=== PATIENT | female | born 1950 | race Caucasian/White ===

== ENCOUNTER → 2016-07-08 | Outpatient (CLI) | payer MEDICARE, OTHER ==
[~2016-07-08] MED LIST: ASPI81TA82 PO; CALTTAB5 PO; CORE25TA PO; DHEA50CA3 PO; DOXY100T PO; HCTZ25 PO; LASI20TA PO; LEVO.125 PO; LEVO137T2 PO; MAGN400C2 PO; PHILCAP2 PO; POTA-243 PO; RAMI2.5C29 PO; SULF1TAB47 PO; TYLE500T PO; VITA100T15 PO; VITA400C28 PO; VITA400C70 PO
[2016-07-08 07:42] LABS: POTASSIUM 3.5 MEQ/L (3.5-5.1)
== END ==
LOC: CLAB 06:53
PROVIDERS: ATTEND Internal Medicine Interventional Cardiology
DX: I11.9 Hypertensive heart disease without heart failure (principal)
CPT/HCPCS: 36415; 80048

== ENCOUNTER → 2016-08-26 | Outpatient (CLI) | payer MEDICARE, OTHER ==
[2016-08-26 08:12] LABS: FREE T4 1.1 NG/DL (0.76-1.46)
== END ==
LOC: CLAB 07:18
PROVIDERS: ATTEND Internal Medicine Endocrinology, Diabetes & Metabolism
DX: E03.9 Hypothyroidism, unspecified (principal)
CPT/HCPCS: 36415; 84439; 84443

== ENCOUNTER → 2016-10-14 | Outpatient (CLI) | payer MEDICARE, OTHER ==
[2016-10-14 07:36] LABS: MEAN CELL VOLUME 90.4 FL (80.0-100.0); MEAN CORPUSCULAR HEMOGLOBIN 31.7 PG (27.0-34.0); MEAN CORPUSCULAR HGB CONC 35.1 % (32.0-36.0); PLATELET COUNT 197 TH/MM3 (150-450); RED BLOOD COUNT 4.42 MIL/MM3 (4.00-5.30); RED CELL DISTRIBUTION WIDTH 12.2 % (11.6-17.2); REVIEW FLAG FINAL; WHITE BLOOD COUNT 5.6 TH/MM3 (4.0-11.0)
[2016-10-14 07:55] LABS: ALT (GPT) 37 U/L (10-53); ANION GAP 11 MEQ/L (5-15); AST (GOT) 16 U/L (15-37); BICARBONATE 26.4 MEQ/L (21.0-32.0); BLOOD UREA NITROGEN 24 MG/DL (7-18); CHLORIDE 102 MEQ/L (98-107); GLOMERULAR FILTRATION RATE 72 ML/MIN (>89); GLUCOSE,FASTING 117 MG/DL (74-99); POTASSIUM 3.9 MEQ/L (3.5-5.1); SODIUM (NA) 139 MEQ/L (136-145)
[2016-10-14 08:22] LABS: ALKALINE PHOSPHATASE 57 U/L (45-117); HDL CHOLESTEROL 47.3 MG/DL (40.0-60.0); LDL CHOLESTEROL 103 MG/DL (0-99); TOTAL BILIRUBIN ADULT 0.5 MG/DL (0.2-1.0)
[2016-10-14 16:59] LABS: HEMOGLOBIN A1a 1.1 %; HEMOGLOBIN A1b 0.9 %; HEMOGLOBIN Ao 85.3 %; HEMOGLOBIN F 1.1 %; HEMOGLOBIN LA1C 1.8 %; HEMOGLOBIN P3 3.4 %
== END ==
LOC: CLAB 07:09
PROVIDERS: ATTEND Internal Medicine
DX: E78.5 Hyperlipidemia, unspecified (principal); E11.9 Type 2 diabetes mellitus without complications; I10 Essential (primary) hypertension; E03.9 Hypothyroidism, unspecified; E55.9 Vitamin D deficiency, unspecified; E53.8 Deficiency of other specified B group vitamins
CPT/HCPCS: 36415; 80053; 80061; 82306; 82607; 83036; 84436; 84443; 85027

== ENCOUNTER → 2017-04-21 | Outpatient (CLI) | payer MEDICARE, OTHER ==
[2017-04-21 07:57] LABS: AUTOMATED NEUTROPHIL # 2.4 TH/MM3 (1.8-7.7); BASOPHIL % 0.8 % (0.0-2.0); EOSINOPHIL # 0.1 TH/MM3 (0-0.4); EOSINOPHIL % 2.2 % (0.0-4.0); HEMATOCRIT 40.2 % (35.0-46.0); HEMO FLAGS DIFF FINAL; LYMPH % 36.4 % (9.0-44.0); LYMPHOCYTE # 1.8 TH/MM3 (1.0-4.8); MEAN CELL VOLUME 92.2 FL (80.0-100.0); MEAN CORPUSCULAR HEMOGLOBIN 32.3 PG (27.0-34.0); MONO % 11.7 % (0.0-8.0); NEUT % 48.9 % (16.0-70.0); PLATELET COUNT 202 TH/MM3 (150-450); RED BLOOD COUNT 4.36 MIL/MM3 (4.00-5.30); RED CELL DISTRIBUTION WIDTH 12.8 % (11.6-17.2)
[2017-04-21 08:19] LABS: ALT (GPT) 34 U/L (10-53)
[2017-04-21 08:27] LABS: ANION GAP 8 MEQ/L (5-15); AST (GOT) 19 U/L (15-37); BICARBONATE 26.8 MEQ/L (21.0-32.0); BLOOD UREA NITROGEN 23 MG/DL (7-18); CHLORIDE 104 MEQ/L (98-107); GLOMERULAR FILTRATION RATE 69 ML/MIN (>89); GLUCOSE,FASTING 118 MG/DL (74-99); POTASSIUM 3.8 MEQ/L (3.5-5.1); SODIUM (NA) 139 MEQ/L (136-145)
[2017-04-21 08:28] LABS: ALKALINE PHOSPHATASE 63 U/L (45-117); FREE T4 1.08 NG/DL (0.76-1.46); TOTAL BILIRUBIN ADULT 0.4 MG/DL (0.2-1.0)
[2017-04-21 13:48] LABS: HEMOGLOBIN A1a 1.2 %; HEMOGLOBIN A1b 0.9 %; HEMOGLOBIN Ao 85.2 %; HEMOGLOBIN F 1.2 %; HEMOGLOBIN P3 3.6 %
== END ==
LOC: CLAB 07:27
PROVIDERS: ATTEND Internal Medicine
DX: I42.0 Dilated cardiomyopathy (principal); I50.22 Chronic systolic (congestive) heart failure; E11.9 Type 2 diabetes mellitus without complications; I10 Essential (primary) hypertension; E03.9 Hypothyroidism, unspecified
CPT/HCPCS: 36415; 80053; 83036; 84439; 84443; 85025

== ENCOUNTER 2017-06-29 03:28 | Emergency (ER) | payer MEDICARE, OTHER ==
[~2017-06-29] VITALS: Ht 165.1 cm; Wt 80.0 kg
[2017-06-29 03:32] VITALS: BP 192/84; PULSE 86; RESP 16; TEMP 97.9; O2SAT 99
[2017-06-29] MEDS ORDERED: LEVO.125 PO (04:04)
[2017-06-29] MEDS ORDERED: ENAL10TA PO (04:04)
[2017-06-29] MEDS ORDERED: HYDR25TA5 PO (04:04)
[2017-06-29] MEDS ORDERED: CALC1TAB87 PO (04:04)
[2017-06-29] MEDS ORDERED: SACC1CAP3 PO (04:04)
[2017-06-29] MEDS ORDERED: VITACAP7 PO (04:04)
[2017-06-29] MEDS ORDERED: DHA100CA (04:04)
[2017-06-29] MEDS ORDERED: MAGN100T2 PO (04:04)
[2017-06-29] MEDS ORDERED: CARV25TA (04:04)
[2017-06-29] MEDS ORDERED: POTA10PO PO (04:04)
[2017-06-29] MEDS ORDERED: VITA500S3 SL (04:04)
[2017-06-29] MEDS ORDERED: VITA200C3 PO (04:04)
[2017-06-29] MEDS ORDERED: DHEA50CA (04:04)
--- NOTE | 2017-06-29 04:28 | PD ---
HPI Chief Complaint: Skin Problem Time Seen by Provider: 04:03 Travel History International Travel<30 days: No Contact w/Intl Traveler<30days: No Traveled to known affect area: No History of Present Illness HPI The patient is a 66 year old female who presents to the [facility] emergency department with a history of right arm redness that began at 2:30AM. It is aching and warm to the touch. She reports that she has a history of frequent cellulitis of the right upper extremity. She has chronic lymphedema of the right upper extremity related to a mastectomy. She reports that she last had a manicure on Thursday. She reports that she has a standing order for antibiotic at the pharmacy, however she has not filled it recently. She reports that she is normally on amoxicillin/clavulanic acid when she develops a cellulitis. Her primary care physician is Dr. Gonzales. She denies having any recent fevers, cough, congestion, neck pain, chest pain, shortness of breath, abdominal pain, vomiting, diarrhea, urinary symptoms, or neurologic symptoms. She denies any prior history of DVT or PE. [facility] Past Medical History Narrative Medical The patient's past medical history is significant for dietary controlled diabetes mellitus, hypertension, ovarian cyst rupture, breast ca s/p mastectomy and chemotherapy, recurrent cellulitis of the right upper extremity. Blood Disorders: No Cancer: Yes (BILATERAL BREAST CA) Cardiovascular Problems: Yes Chemotherapy: Yes Endocrine: Yes Gastrointestinal Disorders: Yes GERD: Yes Genitourinary: No Headaches: Yes Hypertension: Yes Immune Disorder: No Musculoskeletal: Yes (fibromyalgia) Neurologic: Yes Psychiatric: No Respiratory: No Radiation Therapy: No Thyroid Disease: Yes Tetanus Vaccination: < 5 Years Influenza Vaccination: Yes ?: Not Past Surgical History Narrative Surgical The patient's past surgical history is significant for 2 c-sections, hysterectomy, bilateral mastectomy. Abdominal Surgery: Yes (appendectomy 1968) AICD: No Gynecologic Surgery: Yes (c-sections 1969 and 1970, hysterectomy 1971, bilateral mastectomy 2004) Hysterectomy: Yes Joint Replacement: No Pacemaker: No Other Surgery: Yes (DOUBLE MASTECTOMY, PORT INSERT/REMOVAL) Social History Alcohol Use: No Tobacco Use: No Substance Use: No Allergies-Medications (Allergen,Severity, Reaction): Coded Allergies: beta-carotene (Unverified Allergy, Severe, RASH, 06/29/17) celecoxib (Verified Allergy, Severe, 06/29/17) muscle aches citric acid (Unverified Allergy, Severe, Hives, 06/29/17) erythromycin base (Verified Allergy, Severe, 06/29/17) muscle aches ethyl alcohol (Verified Allergy, Severe, 06/29/17) muscle aches vitamin B complex and C (Unverified Allergy, Severe, Hives, 06/29/17) vitamins A and D (Unverified Allergy, Severe, RASH, 06/29/17) ascorbic acid (Unverified Adverse Reaction, Severe, RASH/BREAK OUT AT SITE OF CONTACT, 06/29/17) CANNOT HAVE FOODS CONTAINING VITAMIN C OR ASCORBIC ACID DUE TO RASH/BREAKOUT AT SITE tomato (Unverified Adverse Reaction, Severe, Hives, 06/29/17) PATIENT CANNOT CONSUME FOODS CONTAINING VITAMIN C OR ASCORBIC ACID DUE TO RASH/BREAK OUT AT SITE Uncoded Allergies: CARBOHYDRATE (Allergy, Severe, DIARRHEA, 04/21/07) Reported Meds & Prescriptions Reported Meds & Active Scripts Active Reported Probiotic (Saccharomyces Boulardii) 250 Mg Cap 250 Mg PO BID Magnesium Citrate 100 Mg Tab 400 Mg PO DAILY PRN Vitamin E 200 Unit Cap 400 Units PO DAILY Dhea (Prasterone (DHEA)) 50 Mg Cap Dha [place] 3 (Docosahexaenoic Acid) 100 Mg Cap Calcium 600 with Vitamin D (Calcium Carbonate-Cholecalciferol) 600-400 mg-Unit Tab 1 Tab PO DAILY Vitamin B-12 (Cyanocobalamin) 500 Mcg Subl 500 Mcg SL DAILY B Complex (B-Complex Vitamins) 1 Cap 1 Cap PO DAILY Synthroid (Levothyroxine Sodium) 125 Mcg Tab 125 Mcg PO DAILY Enalapril (Enalapril Maleate) 10 Mg Tab 10 Mg PO BID Potassium Chloride Powder (Potassium Chloride) 20 Meq Powderpack 20 Meq PO DAILY Hydrochlorothiazide 25 Mg Tab 25 Mg PO DAILY Carvedilol 25 Mg Tab 25 Mg BID Review of Systems Except as stated in HPI: all other systems reviewed are Neg General / Constitutional: No: Fever Eyes: No: Visual changes HENT: No: Headaches Cardiovascular: No: Chest Pain or Discomfort Respiratory: No: Shortness of Breath Gastrointestinal: No: Abdominal Pain Genitourinary: No: Dysuria Musculoskeletal: Positive: Edema, Pain Skin: Positive Rash Neurologic: No: Weakness Psychiatric: No: Depression Endocrine: No: Polydipsia Hematologic/Lymphatic: No: Easy Bruising Physical Exam Narrative General: The patient is a well-developed well-nourished female in no acute distress. Head and Neck exam: Head is normocephalic atraumatic. Eyes: EOMI, pupils are equal round and reactive to light. Nose: Midline septum with pink mucous membranes Mouth: Dentition unremarkable. Moist mucus membranes. Posterior oropharynx is not erythematous. No tonsillar hypertrophy. Uvula midline. Airway patent. Neck: No palpable lymphadenopathy. No nuchal rigidity. No thyromegaly. Cardiovascular: Regular rate and rhythm without murmurs, gallops, or rubs. Lungs: Clear to auscultation bilaterally. No wheezes, rhonchi, or rales. Abdomen: Soft, without tenderness to palpation in all 4 quadrants of the abdomen. No guarding, rebound, or rigidity. Normal bowel sounds are audible. No tenderness on palpation of McBurney's point. Negative Christopher sign. Extremities: No clubbing, cyanosis, or edema, except in the area of interest, the right upper extremity. The patient has patchy erythema of the right upper extremity involving the proximal forearm and upper arm. There is warmth to palpation. No significant pain to palpation. She has full range of motion of her right arm without pain in the joints. She has intact sensation over all fingertips, less than 3 second capillary refill. She has soft compartments. No vesicle formation. No crepitus. No pustules. 2+ pulses in all 4 extremities. No calf tenderness on palpation. Back: No spinous process tenderness to palpation. No costovertebral angle tenderness to palpation. Neurologic Exam: Grossly nonfocal. Skin Exam: No other rash noted. Intact skin that is warm and dry. Data Data Last Documented VS Vital Signs Date Time Temp Pulse Resp B/P (MAP) Pulse Ox O2 Delivery O2 Flow Rate FiO2 06/29/17 05:22 80 16 180/70 (106) 98 Room Air 06/29/17 03:32 97.9 Orders Orders Complete Blood Count With Diff (06/29/17 04:34) Comprehensive Metabolic Panel (06/29/17 04:34) Prothrombin Time / Inr (Pt) (06/29/17 04:34) Act Partial Throm Time (Ptt) (06/29/17 04:34) Blood Culture (06/29/17 04:34) C-Reactive Protein (Crp) (06/29/17 04:34) Magnesium (Mg) (06/29/17 04:34) Iv Access Insert/Monitor (06/29/17 04:34) Ecg Monitoring (06/29/17 04:34) Oximetry (06/29/17 04:34) Lactic Acid Sepsis Protocol (06/29/17 04:34) Cefazolin 2 Gm Premix (Ancef 2 Gm Premix (06/29/17 04:45) Ed Discharge Order (06/29/17 06:21) Labs Laboratory Tests Test 06/29/17 04:50 White Blood Count 12.7 TH/MM3 Red Blood Count 4.66 MIL/MM3 Hemoglobin 15.2 GM/DL Hematocrit 43.1 % Mean Corpuscular Volume 92.4 FL Mean Corpuscular Hemoglobin 32.6 PG Mean Corpuscular Hemoglobin Concent 35.3 % Red Cell Distribution Width 12.4 % Platelet Count 174 TH/MM3 Mean Platelet Volume 8.6 FL Neutrophils (%) (Auto) 81.7 % Lymphocytes (%) (Auto) 11.3 % Monocytes (%) (Auto) 5.5 % Eosinophils (%) (Auto) 1.3 % Basophils (%) (Auto) 0.2 % Neutrophils # (Auto) 10.4 TH/MM3 Lymphocytes # (Auto) 1.4 TH/MM3 Monocytes # (Auto) 0.7 TH/MM3 Eosinophils # (Auto) 0.2 TH/MM3 Basophils # (Auto) 0.0 TH/MM3 CBC Comment DIFF FINAL Differential Comment Prothrombin Time 9.9 SEC Prothromb Time International Ratio 1.0 RATIO Activated Partial Thromboplast Time 25.2 SEC Blood Urea Nitrogen 17 MG/DL Creatinine 0.77 MG/DL Random Glucose 112 MG/DL Total Protein 7.8 GM/DL Albumin 4.0 GM/DL Calcium Level 9.6 MG/DL Magnesium Level 2.1 MG/DL Alkaline Phosphatase 72 U/L Aspartate Amino Transf (AST/SGOT) 50 U/L Alanine Aminotransferase (ALT/SGPT) 32 U/L Total Bilirubin 0.6 MG/DL Sodium Level 136 MEQ/L Potassium Level 4.4 MEQ/L Chloride Level 101 MEQ/L Carbon Dioxide Level 27.3 MEQ/L Anion Gap 8 MEQ/L Estimat Glomerular Filtration Rate 75 ML/MIN Lactic Acid Level 2.0 mmol/L C-Reactive Protein LESS THAN 0.29 MG/DL MDM Medical Decision Making Medical Screen Exam Complete: Yes Emergency Medical Condition: Yes Medical Record Reviewed: Yes Differential Diagnosis Cellulitis, versus shingles, versus lymphedema Narrative Course During the course of the patient's emergency department visit, the patient's history, examination, and differential diagnosis were reviewed with the patient. The patient was placed on a monitor worker with oximetry and frequent blood pressure monitoring. The patient had IV access obtained and blood work sent for analysis. The patient was initially provided Ancef 2 g IV. The patient's laboratory studies were reviewed and remarkable for a white count of 12.7, hemoglobin 15.2, platelets 174 with neutrophils 81.7, lactic acid is 2 , PT 9.9, PTT 25.2. CMP is remarkable for glucose of 112, AST 50, C-reactive protein less than 0.29. The patient's results were discussed with her. The patient reports feeling well and would like to be discharged home to start on antibiotic as an outpatient. The patient reports that she has a prescription for amoxicillin with clavulanate that is already been prescribed by her primary care physician for when she develops these infections. She was instructed regarding the importance of calling her physician this morning to schedule an appointment in the next 24 hours for follow-up and reexamination. In the meantime she is instructed that if she develops any worsening signs or symptoms including fever , vomiting, chills, spread of redness, she should follow back up immediately in the emergency department. The patient is resting comfortably and feels better, is alert and in no distress. The patient's results and examination findings were discussed with the patient. The repeat examination is unremarkable and benign. The history, exam, diagnostic testing, and current condition do not suggest any significant pathology to warrant further testing, continued ED treatment, admission, or surgical evaluation at this point. The vital signs have been stable. The patient does not have uncontrollable pain, intractable vomiting, or other significant symptoms. The patient's condition is stable and appropriate for discharge. The patient will pursue further outpatient evaluation with a primary care physician or other designated or consulting physician as indicated in the discharge instructions. The patient expressed understanding and was agreeable with this plan. Diagnosis Primary Impression: Cellulitis of left upper extremity Referrals: Primary Care Physician 2 days Additional Instructions: Filled the previously prescribed antibiotic prescription today. Follow-up with her primary care physician for reexamination in 24 hours. Disposition: 01 DISCHARGE HOME Condition: Stable Leisa Johnson MD Jun 29, 2017 04:28
[2017-06-29] MEDS ORDERED: ceFAZolin 2 GM PREMIX 50 ML IV ONE (04:45)
[2017-06-29 04:55] VITALS: O2SAT 97
[2017-06-29 05:03] LABS: AUTOMATED NEUTROPHIL # 10.4 TH/MM3 (1.8-7.7); BASOPHIL % 0.2 % (0.0-2.0); EOSINOPHIL # 0.2 TH/MM3 (0-0.4); EOSINOPHIL % 1.3 % (0.0-4.0); HEMATOCRIT 43.1 % (35.0-46.0); HEMOGLOBIN 15.2 GM/DL (11.6-15.3); LYMPH % 11.3 % (9.0-44.0); LYMPHOCYTE # 1.4 TH/MM3 (1.0-4.8); MEAN CELL VOLUME 92.4 FL (80.0-100.0); MEAN CORPUSCULAR HEMOGLOBIN 32.6 PG (27.0-34.0); MEAN CORPUSCULAR HGB CONC 35.3 % (32.0-36.0); MEAN PLATELET VOLUME 8.6 FL (7.0-11.0); MONO % 5.5 % (0.0-8.0); MONOCYTE # 0.7 TH/MM3 (0-0.9); NEUT % 81.7 % (16.0-70.0); PLATELET COUNT 174 TH/MM3 (150-450); RED BLOOD COUNT 4.66 MIL/MM3 (4.00-5.30); RED CELL DISTRIBUTION WIDTH 12.4 % (11.6-17.2); WHITE BLOOD COUNT 12.7 TH/MM3 (4.0-11.0)
[2017-06-29 05:13] LABS: PROTHROMBIN TIME - PATIENT 9.9 SEC (9.8-11.6)
[2017-06-29 05:22] VITALS: BP 180/70; PULSE 80; RESP 16; O2SAT 98
[2017-06-29 05:35] LABS: ALT (GPT) 32 U/L (10-53)
[2017-06-29 05:42] LABS: AST (GOT) 50 U/L (15-37); BICARBONATE 27.3 MEQ/L (21.0-32.0); BLOOD UREA NITROGEN 17 MG/DL (7-18); CALCIUM 9.6 MG/DL (8.5-10.1); CHLORIDE 101 MEQ/L (98-107); CREATININE 0.77 MG/DL (0.50-1.00); GLOMERULAR FILTRATION RATE 75 ML/MIN (>89); GLUCOSE,RANDOM 112 MG/DL (74-106); MAGNESIUM 2.1 MG/DL (1.5-2.5); SODIUM (NA) 136 MEQ/L (136-145)
[2017-06-29 05:45] LABS: ALKALINE PHOSPHATASE 72 U/L (45-117); C-REACTIVE PROTEIN LESS THAN 0.29 MG/DL (0.00-0.30); TOTAL BILIRUBIN ADULT 0.6 MG/DL (0.2-1.0); TOTAL PROTEIN 7.8 GM/DL (6.4-8.2)
[2017-06-29 06:53] VITALS: BP_SYST 175; BP_DIAS 7; BP_DIAS 70; PULSE 82; RESP 16; O2SAT 100
== END 2017-06-29 06:54 | disposition home or self-care (01) ==
LOC: NEPC 03:28
DX: L03.114 Cellulitis of left upper limb (principal); I89.0 Lymphedema, not elsewhere classified; I10 Essential (primary) hypertension; E11.9 Type 2 diabetes mellitus without complications; Z85.3 Personal history of malignant neoplasm of breast; R21 Rash and other nonspecific skin eruption; M79.7 Fibromyalgia; Z79.899 Other long term (current) drug therapy
CPT/HCPCS: 80053; 83605; 83735; 85025; 85610; 85730; 86140; 87040; 96365; 99284; J0690

== ENCOUNTER → 2017-09-17 | Outpatient (CLI) | payer MEDICARE, OTHER ==
[~2017-09-17] MED LIST changes: -ASPI81TA82 PO; +CALC1TAB87 PO; -CALTTAB5 PO; +CARV25TA; -CORE25TA PO; +DHA100CA; +DHEA50CA; -DHEA50CA3 PO; -DOXY100T PO; +ENAL10TA PO; -HCTZ25 PO; +HYDR25TA5 PO; -LASI20TA PO; -LEVO137T2 PO; +MAGN100T2 PO; -MAGN400C2 PO; -PHILCAP2 PO; -POTA-243 PO; +POTA10PO PO; -RAMI2.5C29 PO; +SACC1CAP3 PO; -SULF1TAB47 PO; -TYLE500T PO; -VITA100T15 PO; +VITA200C3 PO; -VITA400C28 PO; -VITA400C70 PO; +VITA500S3 SL; +VITACAP7 PO
[2017-09-17 12:04] LABS: FREE T4 1.13 NG/DL (0.76-1.46)
== END ==
LOC: CLAB 11:11
PROVIDERS: ATTEND Internal Medicine Endocrinology, Diabetes & Metabolism
DX: E03.9 Hypothyroidism, unspecified (principal)
CPT/HCPCS: 36415; 84439; 84443

== ENCOUNTER → 2017-10-13 | Outpatient (CLI) | payer MEDICARE, OTHER ==
[2017-10-13 08:13] LABS: AUTOMATED NEUTROPHIL # 1.9 TH/MM3 (1.8-7.7); EOSINOPHIL # 0.1 TH/MM3 (0-0.4); HEMATOCRIT 37.9 % (35.0-46.0); HEMOGLOBIN 13.4 GM/DL (11.6-15.3); LYMPH % 39.9 % (9.0-44.0); LYMPHOCYTE # 1.6 TH/MM3 (1.0-4.8); MEAN CELL VOLUME 91.3 FL (80.0-100.0); MEAN CORPUSCULAR HEMOGLOBIN 32.3 PG (27.0-34.0); MEAN CORPUSCULAR HGB CONC 35.4 % (32.0-36.0); MEAN PLATELET VOLUME 8.2 FL (7.0-11.0); MONO % 10.2 % (0.0-8.0); MONOCYTE # 0.4 TH/MM3 (0-0.9); NEUT % 46.9 % (16.0-70.0); PLATELET COUNT 193 TH/MM3 (150-450); RED BLOOD COUNT 4.15 MIL/MM3 (4.00-5.30); RED CELL DISTRIBUTION WIDTH 12.4 % (11.6-17.2); WHITE BLOOD COUNT 4.1 TH/MM3 (4.0-11.0)
[2017-10-13 08:34] LABS: ALBUMIN 4.3 GM/DL (3.4-5.0); AST (GOT) 15 U/L (15-37); BICARBONATE 23.7 MEQ/L (21.0-32.0); BLOOD UREA NITROGEN 21 MG/DL (7-18); CALCIUM 9.3 MG/DL (8.5-10.1); CHLORIDE 103 MEQ/L (98-107); CREATININE 0.85 MG/DL (0.50-1.00); GLOMERULAR FILTRATION RATE 67 ML/MIN (>89); GLUCOSE,FASTING 110 MG/DL (74-99); SODIUM (NA) 139 MEQ/L (136-145)
[2017-10-13 08:35] LABS: CHOLESTEROL 225 MG/DL (120-200); TRIGLYCERIDES 420 MG/DL (42-150)
[2017-10-13 09:00] LABS: ALKALINE PHOSPHATASE 59 U/L (45-117); ALT (GPT) 30 U/L (10-53); CHOLESTEROL/ HDL RATIO 5.55 RATIO; FREE T4 1.16 NG/DL (0.76-1.46); HDL CHOLESTEROL 40.5 MG/DL (40.0-60.0); TOTAL BILIRUBIN ADULT 0.4 MG/DL (0.2-1.0); TOTAL PROTEIN 7.7 GM/DL (6.4-8.2)
[2017-10-13 09:02] LABS: FOLATE GREATER THAN 20.0 NG/ML (3.1-17.5)
[2017-10-13 16:46] LABS: HEMOGLOBIN A1C 5.5 % (4.3-6.0)
== END ==
LOC: CLAB 07:42
PROVIDERS: ATTEND Internal Medicine
DX: E55.9 Vitamin D deficiency, unspecified (principal); E53.8 Deficiency of other specified B group vitamins; E11.9 Type 2 diabetes mellitus without complications; E78.5 Hyperlipidemia, unspecified; E03.9 Hypothyroidism, unspecified
CPT/HCPCS: 36415; 80053; 80061; 82043; 82306; 82607; 82746; 83036; 84439; 84443; 85025